=== PATIENT | female | born 1995 | race American Indian/Alaskan Native ===

== ENCOUNTER 2017-02-13 16:46 | Emergency (ER) | payer OTHER ==
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
[2017-02-13 17:24] VITALS: BP 110/63
[2017-02-13] MEDS ORDERED: TORADOL IM ONE (17:42)
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
== END 2017-02-13 18:47 | disposition home or self-care (01) ==
LOC: ED 16:46
DX: M54.42 Lumbago with sciatica, left side (principal); M25.552 Pain in left hip; V89.2XXA Person injured in unspecified motor-vehicle accident, traffic, initial encounter; W22.10XA Striking against or struck by unspecified automobile airbag, initial encounter; Y93.89 Activity, other specified; Y99.8 Other external cause status; Y92.89 Other specified places as the place of occurrence of the external cause
CPT/HCPCS: 72100; 73502; 96372; 99283; J1885; J2930